=== PATIENT | female | born 1965 | race Caucasian/White ===

== ENCOUNTER 2021-12-11 09:44 | Day surgery (SDC) | payer OTHER, SELFPAY ==
[2021-12-11 10:01] VITALS: BP 118/73; PULSE 89; RESP 17; TEMP 36.2; O2SAT 98
[2021-12-11] MEDS: Tropicam./Phenyleph. (1/2.5%) 5 ML BTL OU ×3 (10:19→10:33)
--- NOTE | 2021-12-11 11:10 | W.ANESPRE ---
General Info Date of Service Date Performed: 12/11/21 Height: 5 ft 3 in Weight: 61.4 kg Body Mass Index (BMI): 24.0 Surgical Procedure: Operation Date: 12/11/21 11:25 Proposed Procedure Side Surgeon p Cataract Extraction with IOL Implant Bilateral Tristian Ragland MD Meds Allergies and Home Medications Allergies Allergy/AdvReac Type Severity Reaction Status Date / Time Tetracyclines Allergy Unknown Other (See Verified 12/11/21 09:57 Comment) Home Medication Medication Instructions Recorded acyclovir 800 mg tablet 800 mg PO TID PRN 12/07/21 calcium carbonate-vitamin D3 600 1 tab PO DAILY 12/07/21 mg-125 unit tablet glucosamine [id number] 1 tab PO DAILY 12/07/21 angely 1,500 mg-400 unit-100 mg tablet (Glucosamine Daily Complex) lorazepam 1 mg tablet 1 mg PO BID PRN 12/07/21 triamcinolone acetonide 0.5 % 1 applic topical BID PRN 12/07/21 topical cream Current Visit Medications: Current Medications Generic Name Dose Route Start Last Admin Trade Name Freq PRN Reason Stop Dose Admin Acetaminophen 1,000 mg 12/11/21 06:00 Acetaminophen 500 Mg Tab PO 12/11/21 16:00 Q4H PRN PRN Miscellaneous Medication 0 ml 12/11/21 06:00 Prednisolone 1%, Moxifloxacin 0.5%, Nepafenac 0.1% 5ml Btl OU 12/11/21 16:00 DIRECTED CARL Miscellaneous Medication 0 ml 12/11/21 06:00 12/11/21 10:33 Tropicam./Phenyleph. (1/2.5%) 5 Ml Btl OU 12/11/21 16:00 1 drp DIRECTED CARL Administration Tetracaine HCl 0 ml 12/11/21 06:00 Tetracaine 0.5% 4 Ml Btl OU 12/11/21 16:00 DIRECTED CARL PFSH Medical History Medical History Anxiety Bilateral carpal tunnel syndrome Cataract Chalazion left upper eyelid COPD (chronic obstructive pulmonary disease) Eczema of both upper extremities Genital HSV HLD (hyperlipidemia) HSV-2 (herpes simplex virus 2) infection Surgical History Surgical History Hx of colonoscopy Hx of wisdom tooth extraction Tubal ligation status Tobacco Smoking/Tobacco Use Status: Former Tobacco Use Alcohol Alcohol Intake: current Alcohol intake frequency: holidays/special occasions only Substance Use Substance use: Never Substance use type: does not use Vital Signs and Lab Results Vital Signs Most Recent Vital Signs in EMR: Most Recent Vital Signs Temp Pulse Resp BP Pulse Ox 36.2 C L 89 17 118/73 98 12/11/21 10:01 12/11/21 10:01 12/11/21 10:01 12/11/21 10:01 12/11/21 10:01 Lab Results Blood Type / Crossmatch: No Data to Display Complete Blood Count: No Data to Display Complete Metabolic Panel: No Data to Display Liver Function Panel: No Data to Display Coagulation Panel: No Data to Display Cardiac Panel: No Data to Display Arterial Blood Gas: No Data to Display Venous Blood Gas: No Data to Display Pancreas Panel: No Data to Display Thyroid Panel: No Data to Display Infectious Disease: No Data to Display Blood Cultures: No Data to Display Toxicology Panel: No Data to Display Anesthesia Assessment and Plan Anesthesia History Personal History: No History of Anesthesia Complications Family History: No Family History of Anesthesia Complications Exercise Tolerance Exercise Tolerance: Metabolic Equivalents>4 Pertinent Negatives Pertinent Negatives: No Symptoms of GERD, No Major Cardiovascular Symptoms or Complaints, No Major Pulmonary Symptoms or Complaints and No History of CVA/TIA Cardiac & Pulmonary Exam Cardiac Exam: Normal S1/S2 Heart Sounds Pulmonary Exam: Clear Bilateral Breath Sounds Implantable Cardiac Device Does patient have a Pacemaker or an ICD?: No Airway Exam Known Difficult Airway: No Mallampati Class: 1 Mouth Opening: Normal (> 3cm) Thyromental Distance: Greater than 3 cm Neck Range of Motion: Full ROM Neck Circumference: Normal Teeth Condition: Normal Dentition Airway Comments: Implants bottom bilaterally ASA Classification ASA Score: ASA 2 Emergency Case?: No NPO Status NPO Status: NPO Clears >2 hours, Solids >8 hours Anesthesia Plan Resuscitation Status: Full Code Anesthesia Technique: MAC Anesthesia Airway Planned: Natural Airway Monitors Used: Standard Monitors
[2021-12-11 11:11] VITALS: BMI 24.0
[2021-12-11] MEDS: Lidocaine 2% Jelly 6 ML SYR (11:37)
[2021-12-11] MEDS: Duovisc Viscoelastic System EACH 1 EACH (11:39)
[2021-12-11] MEDS: Balanced Salt Soln.-PLUS 500 ML BAG (11:39)
[2021-12-11] MEDS: Tetracaine 0.5% 4 ML BTL OU ×2 (11:41→12:04)
[2021-12-11 12:28] VITALS: BP 132/72; PULSE 81; RESP 16; TEMP 36; O2SAT 98
--- NOTE | 2021-12-11 12:30 | W.ANESPOSTOP ---
Postoperative Evaluation Date, Time and Location Date Performed: 12/11/21 Time Performed: 12:30 Patient Location: Day Surgery Unit Vital Signs Most Recent Imported Vital Signs: Most Recent Vital Signs Temp Pulse Resp BP Pulse Ox 36.2 C L 89 17 118/73 98 12/11/21 10:01 12/11/21 10:01 12/11/21 10:01 12/11/21 10:01 12/11/21 10:01 Most Recent Manually Entered Vital Signs: Adult Blood Pressure: 132/72 Heart Rate: 76 Respirations: 11 Oxygen Saturation (%): 98 Temperature (C): 36.3 C Pain Score (0-10 Scale): 0 Pain Score Most Recent Pain Score: Most Recent Pain Score Pain Level 0 12/11/21 10:01 Assessment Mental Status: Awake (Alert & Oriented to Patient Baseline) Airway and Respiratory Function: Patent airway with normal (patient baseline) respiratory exam Cardiovascular Function: Hemodynamically Stable Hydration Status: Adequately Hydrated Nausea & Vomiting: No Nausea or Vomiting Pain: Pt. Denies Any Pain Peripheral Nerve Block: Patient did not receive a nerve block
--- NOTE | 2021-12-11 12:30 | W.PM.DSUDISC ---
Discharge Plan Disposition Patient Disposition: HOME Condition: Good Discharge Details Attending Provider: Tristian Ragland Primary Care Provider: Janice Tierney Home Meds and New Rx's Prescriptions: No Action triamcinolone acetonide 0.5 % Cream 1 applic TOPICAL BID PRN acyclovir 800 mg Tablet 800 mg PO TID PRN lorazepam 1 mg Tablet 1 mg PO BID PRN calcium carbonate-vitamin D3 600-125 mg-unit Tablet 1 tab PO DAILY [id number] [Glucosamine Daily Complex] 1,500-400-100 mg-unit-mg Tablet 1 tab PO DAILY Discharge Instructions Stand Alone Forms: Post-op Topical Cataract, Press Ganey (DSU) Discharge Orders Discharge Orders: Discharge Order (Routine); Ordered 12/11/21 Ordered By: Tristian Ragland DS: Diagnosis Discharge Diagnosis (1) Cortical cataract of both eyes: Status: Resolved (2) Nuclear cataract of both eyes: Status: Resolved (3) Posterior subcapsular age-related cataract of both eyes: Status: Resolved
[2021-12-11 12:31] VITALS: BP 132/72; PULSE 76; RESP 11; TEMPC 36.3; O2SAT 98
--- NOTE | 2021-12-11 12:33 | W.PM.OP ---
Date of service: 12/11/21 Time of Service: 11:33 Operative Note Operative Note DATE OF PROCEDURE: 12/11/21 PRE-OP DIAGNOSIS: Nuclear/cortical/posterior subcapsular cataract, both eyes POST-OP DIAGNOSIS: same PROCEDURE: Immediately sequential bilateral cataract extraction using phacoemulsification with intraocular lens implants, both eyes SURGEON: Tristian Ragland Refer to Anesthesia Record PATHOLOGY: none sent COMPLICATIONS: None Patient was transported to: same day Patient's condition: stable Implants: Matthew [employer] / [employer] Tecnis ZCB00 Indications: Progressive decreased vision due to cataract, both eyes Procedure Description: CATARACT SURGERY OPERATIVE REPORT PREOPERATIVE DIAGNOSIS: Nuclear/cortical/posterior subcapsular cataract, both eyes POSTOPERATIVE DIAGNOSIS: Same OPERATION: Bilateral sequential cataract extraction using phacoemulsification with posterior chamber intraocular lens implant, both eyes IOL OS: IOL Senior Market Research Analyst/Model: [employer] / TOYA Tecnis ZCB00 IOL Power: + 26.0 diopters IOL Serial Number: [id number] Optic Diameter: 6.0mm Haptic/Overall Diameter: 13.0mm PHACO INFO OS: Frankie [employer] Vision System with OZil and Active [employer]uidics Cumulative Dispersed Energy (CDE): 11.91 seconds IOL OD: IOL Senior Market Research Analyst/Model: [employer] / TOYA Tecnis ZCB00 IOL Power: + 28.5 diopters IOL Serial Number: [id number] Optic Diameter: 6.0mm Haptic/Overall Diameter: 13.0mm PHACO INFO OD: Frankie [employer] Vision System with OZil and Active [employer]uidics Cumulative Dispersed Energy (CDE): 6.10 seconds SURGEON: Tristian Ragland MD, MANDO ANESTHESIA: Monitored Anesthesia Care (MAC), with local sub-tenon's anesthetic infiltration COMPLICATIONS: None SPECIMENS: None INDICATIONS FOR PROCEDURE: The patient is a 56-year-old lady with history of diminished visual acuity in both eyes secondary to the development of bilateral nuclear/cortical/posterior subcapsular cataract, left eye worse than right. She has significant symptoms of glare. She has a history of high hyperopia with short axial length. The option of cataract surgery was offered to the patient and she felt she was symptomatic enough that she wished to proceed. PROCEDURE: The correct surgical eye was identified and marked as both eyes and the pupils were dilated in the preoperative area using mydriatics and cycloplegics. The dilated pupil size was 6.0 mm. She elected to proceed without oral sedation. patient was brought to the operating room where cardiopulmonary monitoring was instituted and surgical time-out was performed, confirming the correct operative eye and IOL power. Attention was frist directed towar the right eye. Topical anesthesia was administered and ophthalmic povidone-iodine 5% was instilled into the conjunctival fornices. Lidocaine gel was applied to the cornea and the hal-ocular area was prepped with Betadine 10% solution and draped in the usual sterile fashion for intraocular surgery, including an aperture drape. A Tegaderm transparent film dressing was cut in half and used to cover the lashes and lid margins. Care was taken to sequester the lashes and lid margins under the Tegaderm dressing. A lid speculum was placed between the lids of the operative eye and the Frankie Lux[employer] operating microscope was maneuvered into position. Lamin scissors were then used to make a conjunctival buttonhole approximately 6mm posterior to the limbus in the inferonasal quadrant. Blunt dissection was carried out to expose bare sclera, and a blunt-tipped sub-tenon?s anesthesia cannula was introduced and passed posteriorly along the globe where non-preserved plain lidocaine was injected into posterior sub-Tenon?s space. A sideport knife was used to make a paracentesis port at the 7:00 postion. Intraocular phenylephrine/lidocaine was injected into the anterior chamber. The anterior chamber was filled with viscoelastic. . A 2.4mm keratome knife was used to construct a two-plane near-clear corneal tunnel extending 2.0mm into clear cornea at the 10:00 position. A flap was raised on the anterior capsule and capsulorhexis forceps were used to complete a continuous curvilinear capsulorhexis of 5.0 mm. Balanced salt solution was then used to perform cortical cleaving hydrodissection and nuclear hydrodelineation until the lens could be freely rotated within the capsular bag. The lens nucleus was then disassembled and removed within the capsular bag and iris plane using phacoemulsification. Residual cortical material was removed using the 45-degree angled silicone I/A tip with 0.3mm port. The posterior capsule was carefully polished to remove as much residual lens epithelial cells as safely possible. The capsular bag was then inflated and the anterior chamber deepened with viscoelastic. The lens implant described above was inserted into the capsular bag using the TOYA Yuhaaviatam Injector. A Kuglen hook was used to dial the IOL into position. Residual viscoelastic was then removed first from posterior to the IOL, then from the anterior chamber using the I/A handpiece. The lens implant was noted to center nicely within the capsular bag. The incisions were stromally hydrated, and the anterior chamber was reformed using BSS. Then 0.4cc of moxifloxacin 1.5mg/ml were injected into the capsular bag and anterior chamber. The incisions were checked with a Weck spear and found to be secure. Several drops of ophthalmic povidone-iodine 5% were then applied to the eye followed by two drops of Imprimis combination prednisolone/moxifloxacin/nepafenac solution. The drapes were removed and a clear plastic protective eye shield was placed over the eye. Attention was then directed toward the left eye, where an entirely new set of instruments, tubing, medications, fluids, gowns, gloves, and drapes were used. Topical anesthesia was administered and ophthalmic povidone-iodine 5% was instilled into the conjunctival fornices. Lidocaine gel was applied to the cornea and the hal-ocular area was prepped with Betadine 10% solution and draped in the usual sterile fashion for intraocular surgery, including an aperture drape. A Tegaderm transparent film dressing was cut in half and used to cover the lashes and lid margins. Care was taken to sequester the lashes and lid margins under the Tegaderm dressing. A lid speculum was placed between the lids of the operative eye and the Frankie [employer] operating microscope was maneuvered into position. Lamin scissors were then used to make a conjunctival buttonhole approximately 6mm posterior to the limbus in the inferonasal quadrant. Blunt dissection was carried out to expose bare sclera, and a blunt-tipped sub-tenon?s anesthesia cannula was introduced and passed posteriorly along the globe where non-preserved plain lidocaine was injected into posterior sub-Tenon?s space. A sideport knife was used to make a paracentesis port at the 12:00 postion. Intraocular phenylephrine/lidocaine was injected into the anterior chamber. The anterior chamber was filled with viscoelastic. A 2.4mm keratome knife was used to construct a two-plane near-clear corneal tunnel extending 2.0mm into clear cornea at the 3:00 position. A flap was raised on the anterior capsule and capsulorhexis forceps were used to complete a continuous curvilinear capsulorhexis of 5.0 mm.. The capsule was noted to be quite thin. There was a dense posterior subcapsular cataract occupying the temporal half of the lens. Balanced salt solution was then used to perform cortical cleaving hydrodissection and nuclear hydrodelineation until the lens could be freely rotated within the capsular bag. The lens nucleus was then disassembled and removed within the capsular bag and iris plane using phacoemulsification. Residual cortical material was removed using the 45-degree angled silicone I/A tip with 0.3mm port. The posterior capsule was carefully polished to remove as much residual lens epithelial cells as safely possible. The capsular bag was then inflated and the anterior chamber deepened with viscoelastic. The lens implant described above was inserted into the capsular bag using the TOYA Yuhaaviatam Injector. A Kuglen hook was used to dial the IOL into position. Residual viscoelastic was then removed first from posterior to the IOL, then from the anterior chamber using the I/A handpiece. The lens implant was noted to center nicely within the capsular bag. The incisions were stromally hydrated, and the anterior chamber was reformed using BSS. Then 0.5cc of moxifloxacin 1.0mg/ml were injected into the capsular bag and anterior chamber. The incisions were checked with a Weck spear and found to be secure. Several drops of ophthalmic povidone-iodine 5% were then applied to the eye followed by two drops of Imprimis combination prednisolone/moxifloxacin/nepafenac. The drapes were removed and a clear plastic protective eye shield was placed over the eye. The patient was then returned to [facility] Day Surgery in stable condition.
== END 2021-12-11 12:45 | disposition home or self-care (01) ==
PROVIDERS: PCP Nurse Practitioner; Visit Provider Ophthalmology
PROC: (CPT 66984; principal; 2021-12-11 11:15)
DX: H25.043 Posterior subcapsular polar age-related cataract, bilateral (principal); J44.9 Chronic obstructive pulmonary disease, unspecified; E78.5 Hyperlipidemia, unspecified
CPT/HCPCS: 66984; V2632